=== PATIENT | male | born 1970 | race Caucasian/White ===

== ENCOUNTER → 2018-08-22 | Outpatient (CLI) | payer OTHER ==
--- NOTE | 2018-08-29 23:08 | SLEEPHOME ---
DATE OF PROCEDURE: 08/22/2018 ORDERED BY: Drew Villeda Diagnostic home sleep testing was performed due to concern for the obstructive sleep apnea syndrome in this patient with hypersomnia. For testing, a nocturnal T3 respiratory monitoring device was used. Continuous record was made of pulse, oxygen saturation, airflow, chest, abdominal strain and body position. 10 hours and 59 minutes of data were reviewed. There were 6 hours and 33 minutes marked as time in bed. During the interval marked time in bed, there were 52 respiratory events identified of 10 seconds in duration or greater for a respiratory event index of 7.9. The events were primarily obstructive. Baseline pulse rate of 79 beats per minute, pulse rate ranged 66-188. Baseline saturation was 95%, saturations fell to 75%. Testing was performed in both the supine and nonsupine positions. IMPRESSION: Abnormal home sleep testing with repetitive respiratory events and oxygen desaturations to 75% with a respiratory event index of 7.5 is consistent with the obstructive sleep apnea syndrome. RECOMMENDATIONS: The patient should be referred for a formal sleep evaluation and in laboratory pressure titration.
== END ==
LOC: M SLEEP HO 10:34
PROVIDERS: ATTEND Physician Assistant Medical
DX: G47.10 Hypersomnia, unspecified (principal); G47.33 Obstructive sleep apnea (adult) (pediatric)

== ENCOUNTER → 2018-10-25 | Outpatient (CLI) | payer OTHER ==
--- NOTE | 2018-10-26 02:28 | REP ---
Clinical: Left ankle pain/injury. Technique: AP, lateral, bilateral oblique views of the left ankle. Findings: Swelling is suggested. No obvious acute fracture or dislocation identified. Joint spaces and ankle mortise appear relatively intact and normal for age. Impression: Swelling. Age-related changes. No obvious acute fracture or dislocation. Electronically Signed by Aron Lieberman MD 10/26/2018 02:20 A
== END ==
LOC: M WUC 13:11
PROVIDERS: ATTEND Physician Assistant
DX: M25.472 Effusion, left ankle (principal); M25.572 Pain in left ankle and joints of left foot

== ENCOUNTER → 2019-06-26 | Outpatient (CLI) | payer OTHER ==
--- NOTE | 2019-06-26 19:22 | REP ---
MRI left shoulder without contrast: History: Adhesive capsulitis left shoulder. No comparison radiographs. Pain and limited range of motion. No known injury. Rule out rotator cuff tear. Technique: Axial, oblique coronal and oblique sagittal imaging planes are utilized. T1 and T2-weighted scans were included with and without fat saturation. MRI findings: Glenohumeral and acromioclavicular joints are normally aligned. There is osteoarthritic spurring superiorly and inferiorly at the AC joint. There is mild subcortical cyst formation in the distal clavicle. A small subacromial subdeltoid bursal effusion is seen. There is diffuse increased signal intensity and some swelling in the distal supraspinatus on oblique coronal T1-weighted scans. T2-weighted scans demonstrate focal partial-thickness T2 lesion at the distal insertion consistent with partial thickness supraspinatus tear. There is no evidence of muscle atrophy or edema. No anterior or posterior labral tear is appreciated. The superior labrum appears to be intact. There is subcortical cyst formation in the anteromedial humeral head. There is a small quantity of fluid at the infraspinatus tendon insertion consistent with partial thickness infraspinatus tear as well. Subscapularis tendon appears intact. Biceps tendon is in the bony bicipital groove and has an intact appearance. Impression: Advanced supraspinatus tendinosis with partial thickness focal T2 signal in the distal tendon consistent with partial thickness tear. There is focal T2 signal in the infraspinatus tendon along its insertion as well. 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 Electronically Signed by Ajay Reynoso MD 06/26/2019 07:34 P
== END ==
LOC: M RAD 15:52
PROVIDERS: ATTEND Orthopaedic Surgery
DX: M75.02 Adhesive capsulitis of left shoulder (principal); M19.012 Primary osteoarthritis, left shoulder

== ENCOUNTER → 2020-10-27 | Outpatient (REF) | payer OTHER ==
[2020-10-27 18:47] LABS: MALB URINE SIEMENS 12.1 MG/L; MAU/CREAT RATIO 16.5 MCG/MG (0.0-30.0)
== END ==
LOC: M LAB REF 16:59
PROVIDERS: ATTEND Internal Medicine
DX: E11.65 Type 2 diabetes mellitus with hyperglycemia (principal)